=== PATIENT | male | born 1990 | race Caucasian/White ===

== ENCOUNTER 2017-09-08 12:04 | Emergency (ER) | payer MEDICAID ==
[~2017-09-08] VITALS: Ht 180.3 cm; Wt 145.5 kg
[2017-09-08 12:24] VITALS: Ht 180.3 cm; Wt 145.5 kg
[2017-09-08 13:09] LABS: BASOPHILS 0.3 % (0-2); EOSINOPHILS 1.3 % (0-7); HEMOGLOBIN 15.1 g/dL (13.5-17.5); IMMATURE GRANULOCYTES 0.4 % (0-5); LYMPHOCYTES 20.3 % (15-50); MCH 29.3 pg (26.0-34.0); MCHC 33.6 g/dL (31.0-37.0); MCV 87.2 fL (80.0-100.0); MEAN PLATELET VOLUME 10.7 fL (7.4-10.4); MONOCYTES 7.5 % (2-11); NEUTROPHILS 70.2 % (40-80); PLATELET COUNT 356 10x3/uL (130-400); RBC 5.16 10x6/uL (4.20-6.10); RDW 14.3 % (11.5-14.5); WBC 11.9 10x3/uL (4.8-10.8)
[2017-09-08 13:28] LABS: ALBUMIN 3.3 g/dL (3.4-5.0); ALKALINE PHOSPHATASE 84 U/L (46-116); ALT (SGPT) 45 U/L (10-68); BILIRUBIN - TOTAL 0.25 mg/dL (0.2-1.3); CALC OSMOLALITY 282 mosm/kg (275-300); CALCIUM 8.6 mg/dL (8.5-10.1); CARBON DIOXIDE 29.9 mmol/L (21.0-32.0); CHLORIDE - SERUM 108 mmol/L (98-107); CREATININE - SERUM 1.1 mg/dL (0.6-1.3); GLUCOSE 119 mg/dL (74-106); POTASSIUM - SERUM 3.9 mmol/L (3.5-5.1); PROTEIN - SERUM 6.5 g/dL (6.4-8.2); SODIUM 141 mmol/L (136-145); UREA NITROGEN 16 mg/dL (7-18); eGFR NON AFRICAN AMERICAN 87 mL/min (90-120)
[2017-09-08 13:56] LABS: APPEARANCE CLEAR (CLEAR); BILIRUBIN NEGATIVE (NEGATIVE); COLOR DK YELLOW (YELLOW); GLUCOSE NEGATIVE (NEGATIVE); KETONE NEGATIVE (NEGATIVE); NITRITE NEGATIVE (NEGATIVE); PROTEIN NEGATIVE (NEGATIVE); SPECIFIC GRAVITY 1.025 (1.005-1.020); UROBILINOGEN NORMAL (NORMAL)
[2017-09-08 14:03] LABS: AMYLASE - SERUM 24 U/L (25-115); LIPASE 110 U/L (73-393)
[2017-09-08] MEDS ORDERED: BENTYL 20 MG TA20 MG PO (16:27)
[2017-09-08] MEDS ORDERED: OMEPRAZOLE40 MG PO (16:27)
[2017-09-08] MEDS ORDERED: ZOFRAN ODT4 MG/UDTAB PO (16:27)
[2017-09-08 16:52] VITALS: BP 116/70
== END 2017-09-08 16:45 | disposition home or self-care (01) ==
LOC: D.ER 12:04
PROVIDERS: Emergency Medicine
DX: K52.9 Noninfective gastroenteritis and colitis, unspecified (principal); R11.2 Nausea with vomiting, unspecified

== ENCOUNTER 2017-09-10 13:57 | Emergency (ER) | payer MEDICAID ==
[~2017-09-10] VITALS: Ht 180.3 cm; Wt 140.9 kg
[~2017-09-10 13:57] MED LIST: BENTYL 20 MG TA20 MG PO; OMEPRAZOLE40 MG PO; ZOFRAN ODT4 MG/UDTAB PO
[2017-09-10 14:56] VITALS: Ht 180.3 cm; Wt 140.9 kg
[2017-09-10 16:03] LABS: HEMATOCRIT 48.4 % (42.0-54.0); HEMOGLOBIN 16.2 g/dL (13.5-17.5); LYMPHOCYTES 18.6 % (15-50); MCH 29.2 pg (26.0-34.0); MCHC 33.5 g/dL (31.0-37.0); MCV 87.2 fL (80.0-100.0); MEAN PLATELET VOLUME 10.3 fL (7.4-10.4); NEUTROPHILS 71.8 % (40-80); PLATELET COUNT 339 10x3/uL (130-400); RBC 5.55 10x6/uL (4.20-6.10); RDW 14.8 % (11.5-14.5); WBC 12.7 10x3/uL (4.8-10.8)
[2017-09-10 16:26] LABS: AMYLASE - SERUM 29 U/L (25-115); CALC OSMOLALITY 282 mosm/kg (275-300); CALCIUM 8.7 mg/dL (8.5-10.1); CARBON DIOXIDE 29.4 mmol/L (21.0-32.0); CHLORIDE - SERUM 106 mmol/L (98-107); CREATININE - SERUM 1.1 mg/dL (0.6-1.3); GLUCOSE 98 mg/dL (74-106); LIPASE 107 U/L (73-393); POTASSIUM - SERUM 4.1 mmol/L (3.5-5.1); SODIUM 142 mmol/L (136-145); UREA NITROGEN 13 mg/dL (7-18); eGFR NON AFRICAN AMERICAN 87 mL/min (90-120)
[2017-09-10 18:42] LABS: APPEARANCE CLEAR (CLEAR); BILIRUBIN NEGATIVE (NEGATIVE); COLOR YELLOW (YELLOW); GLUCOSE NEGATIVE (NEGATIVE); KETONE NEGATIVE (NEGATIVE); NITRITE NEGATIVE (NEGATIVE); PROTEIN NEGATIVE (NEGATIVE); SPECIFIC GRAVITY 1.025 (1.005-1.020); UROBILINOGEN NORMAL (NORMAL)
[2017-09-10] MEDS ORDERED: CIPRO500 MG PO (21:27)
[2017-09-10] MEDS ORDERED: ZOFRAN ODT4 MG/UDTAB PO (21:27)
[2017-09-10] MEDS ORDERED: FLAGYL500 MG PO (21:27)
[2017-09-10 21:57] VITALS: BP 100/65
== END 2017-09-10 21:54 | disposition home or self-care (01) ==
LOC: D.ER 13:57
PROVIDERS: Emergency Medicine
DX: K52.9 Noninfective gastroenteritis and colitis, unspecified (principal)

== ENCOUNTER 2017-09-12 16:19 | Emergency (ER) | payer MEDICAID ==
[~2017-09-12] VITALS: Ht 180.3 cm; Wt 145.5 kg
[~2017-09-12 16:19] MED LIST changes: +CIPRO500 MG PO; +FLAGYL500 MG PO
[2017-09-12 16:47] VITALS: Ht 180.3 cm; Wt 145.5 kg
[2017-09-12 17:28] LABS: APPEARANCE CLEAR (CLEAR); BILIRUBIN NEGATIVE (NEGATIVE); COLOR YELLOW (YELLOW); GLUCOSE NEGATIVE (NEGATIVE); KETONE NEGATIVE (NEGATIVE); NITRITE NEGATIVE (NEGATIVE); PROTEIN NEGATIVE (NEGATIVE); UROBILINOGEN NORMAL (NORMAL)
[2017-09-12 17:29] LABS: HEMATOCRIT 43.8 % (42.0-54.0); HEMOGLOBIN 14.6 g/dL (13.5-17.5); MCH 29.3 pg (26.0-34.0); MCHC 33.3 g/dL (31.0-37.0); MEAN PLATELET VOLUME 10.7 fL (7.4-10.4); PLATELET COUNT 347 10x3/uL (130-400); RBC 4.98 10x6/uL (4.20-6.10); RDW 14.3 % (11.5-14.5); WBC 21.9 10x3/uL (4.8-10.8)
[2017-09-12 17:47] LABS: ALBUMIN 3.1 g/dL (3.4-5.0); ALKALINE PHOSPHATASE 100 U/L (46-116); ALT (SGPT) 34 U/L (10-68); BILIRUBIN - TOTAL 0.13 mg/dL (0.2-1.3); CALC OSMOLALITY 280 mosm/kg (275-300); CALCIUM 8.9 mg/dL (8.5-10.1); CARBON DIOXIDE 25.6 mmol/L (21.0-32.0); CHLORIDE - SERUM 106 mmol/L (98-107); CREATININE - SERUM 0.9 mg/dL (0.6-1.3); GLUCOSE 127 mg/dL (74-106); POTASSIUM - SERUM 4.1 mmol/L (3.5-5.1); PROTEIN - SERUM 6.6 g/dL (6.4-8.2); SODIUM 140 mmol/L (136-145); UREA NITROGEN 13 mg/dL (7-18); eGFR NON AFRICAN AMERICAN > 90 mL/min (90-120)
[2017-09-12 18:13] LABS: LYMPHOCYTES 8 % (15-50); MONOCYTES 4 % (2-11); NEUTROPHILS 87 % (40-80); PLATELET ESTIMATE NORMAL; PLATELET MORPHOLOGY GIANT PLTS PRESENT
[2017-09-12 20:40] LABS: AMYLASE - SERUM 32 U/L (25-115); LIPASE 90 U/L (73-393)
[2017-09-12] MEDS ORDERED: TYLENOL W/CODEI1 TAB PO (21:21)
[2017-09-12] MEDS ORDERED: CARAFATE1 G PO (21:21)
[2017-09-12 21:51] VITALS: BP 149/86
== END 2017-09-12 21:51 | disposition home or self-care (01) ==
LOC: D.ER 16:19
PROVIDERS: Family Medicine
DX: R10.13 Epigastric pain (principal); K29.70 Gastritis, unspecified, without bleeding

== ENCOUNTER 2018-01-06 15:59 | Inpatient (IN) | payer MEDICAID ==
[~2018-01-06] VITALS: Ht 180.3 cm; Wt 142.7 kg
--- NOTE | ~2018-01-06 | MORECARE ---
CASE MANAGEMENT DISCHARGE SUMMARY PATIENT: MINDI MALONE UNIT: [id number] ADM DATE: 01/07/18 AGE: 27 : 89 SEX: M ROOM/BED: D.2128 AUTHOR: IRAIS JORDAN PHYSICIAN: REFERRING PHYSICIAN: SAFIA PATEL MD DATE OF SERVICE: 01/15/18 Discharge Plan Patient Name: MINDI MALONE Facility: [facility]:[place] : 1990 Planned Disposition: Home Anticipated Discharge Date: 01/13/18 Discharge Date: 01/13/2018 Expected LOS: 6 Initial Reviewer: [email or web address] Initial Review Date: 01/15/2018 Generated: 01/15/18 6:05 pm Patient Name: MINDI MALONE Page [id number] at 1705 All edits/amendments must be made on the electronic document DICTATION DATE: 01/15/181704 BATH STEWARD/STEWARDESS: LUIS 01/15/181704 RPT#: [id number] DC DATE:01/13/18 STATUS: DIS IN [facility] [address] [place] [address] END OF REPORT
[~2018-01-06 15:59] MED LIST changes: +CARAFATE1 G PO; +TYLENOL W/CODEI1 TAB PO
[2018-01-06 16:39] LABS: BASOPHILS 0.3 % (0-2); EOSINOPHILS 0.9 % (0-7); HEMATOCRIT 43.2 % (42.0-54.0); HEMOGLOBIN 14.1 g/dL (13.5-17.5); IMMATURE GRANULOCYTES 0.4 % (0-5); MCH 29.1 pg (26.0-34.0); MCHC 32.6 g/dL (31.0-37.0); MCV 89.1 fL (80.0-100.0); MEAN PLATELET VOLUME 10.1 fL (7.4-10.4); MONOCYTES 8.7 % (2-11); NEUTROPHILS 65.7 % (40-80); PLATELET COUNT 383 10x3/uL (130-400); RBC 4.85 10x6/uL (4.20-6.10)
[2018-01-06 16:57] LABS: ALBUMIN 2.9 g/dL (3.4-5.0); ALKALINE PHOSPHATASE 93 U/L (46-116); ALT (SGPT) 32 U/L (10-68); AMYLASE - SERUM 31 U/L (25-115); BILIRUBIN - TOTAL 0.09 mg/dL (0.2-1.3); CALC OSMOLALITY 283 mosm/kg (275-300); CALCIUM 8.5 mg/dL (8.5-10.1); CARBON DIOXIDE 29.8 mmol/L (21.0-32.0); CHLORIDE - SERUM 107 mmol/L (98-107); CREATININE - SERUM 0.8 mg/dL (0.6-1.3); GLUCOSE 89 mg/dL (74-106); LIPASE 80 U/L (73-393); POTASSIUM - SERUM 3.6 mmol/L (3.5-5.1); PROTEIN - SERUM 6.9 g/dL (6.4-8.2); SODIUM 143 mmol/L (136-145); UREA NITROGEN 13 mg/dL (7-18); eGFR NON AFRICAN AMERICAN > 90 mL/min (90-120)
[2018-01-06 19:50] LABS: APPEARANCE CLEAR (CLEAR); BILIRUBIN NEGATIVE (NEGATIVE); COLOR YELLOW (YELLOW); GLUCOSE NEGATIVE (NEGATIVE); KETONE NEGATIVE (NEGATIVE); NITRITE NEGATIVE (NEGATIVE); PROTEIN NEGATIVE (NEGATIVE); SPECIFIC GRAVITY 1.015 (1.005-1.020); UROBILINOGEN NORMAL (NORMAL)
[2018-01-06 20:07] VITALS: BP 152/80
[2018-01-07 04:00] VITALS: BP 101/41
[2018-01-07 05:34] LABS: BASOPHILS 0.3 % (0-2); EOSINOPHILS 1.8 % (0-7); HEMATOCRIT 39.7 % (42.0-54.0); HEMOGLOBIN 12.7 g/dL (13.5-17.5); IMMATURE GRANULOCYTES 0.4 % (0-5); MCH 28.5 pg (26.0-34.0); MEAN PLATELET VOLUME 10.1 fL (7.4-10.4); MONOCYTES 7.1 % (2-11); NEUTROPHILS 64.4 % (40-80); PLATELET COUNT 325 10x3/uL (130-400); RBC 4.46 10x6/uL (4.20-6.10); RDW 14.2 % (11.5-14.5); WBC 13.5 10x3/uL (4.8-10.8)
[2018-01-07 06:07] LABS: ALBUMIN 2.5 g/dL (3.4-5.0); ALKALINE PHOSPHATASE 81 U/L (46-116); ALT (SGPT) 26 U/L (10-68); BILIRUBIN - TOTAL 0.18 mg/dL (0.2-1.3); CALC OSMOLALITY 279 mosm/kg (275-300); CALCIUM 7.9 mg/dL (8.5-10.1); CARBON DIOXIDE 28.7 mmol/L (21.0-32.0); CHLORIDE - SERUM 106 mmol/L (98-107); CREATININE - SERUM 0.8 mg/dL (0.6-1.3); GLUCOSE 83 mg/dL (74-106); PROTEIN - SERUM 5.9 g/dL (6.4-8.2); SODIUM 141 mmol/L (136-145); UREA NITROGEN 12 mg/dL (7-18); eGFR NON AFRICAN AMERICAN > 90 mL/min (90-120)
[2018-01-07 08:16] VITALS: BP 141/109
[2018-01-07 11:37] VITALS: BP 114/62
[2018-01-07 13:15] VITALS: BMI 43.5
[2018-01-07 15:30] VITALS: BP 135/96
[2018-01-07 20:00] VITALS: BP 153/77
[2018-01-08] VITALS: BP 137/66
[2018-01-08 04:00] VITALS: BP 114/64
[2018-01-08 05:16] LABS: BASOPHILS 0.1 % (0-2); EOSINOPHILS 2.7 % (0-7); HEMATOCRIT 40.4 % (42.0-54.0); HEMOGLOBIN 12.8 g/dL (13.5-17.5); IMMATURE GRANULOCYTES 0.2 % (0-5); LYMPHOCYTES 18.6 % (15-50); MCH 28.6 pg (26.0-34.0); MCHC 31.7 g/dL (31.0-37.0); MCV 90.2 fL (80.0-100.0); MEAN PLATELET VOLUME 9.8 fL (7.4-10.4); MONOCYTES 5.2 % (2-11); NEUTROPHILS 73.2 % (40-80); PLATELET COUNT 316 10x3/uL (130-400); RBC 4.48 10x6/uL (4.20-6.10); WBC 13.4 10x3/uL (4.8-10.8)
[2018-01-08 05:41] LABS: ALBUMIN 2.6 g/dL (3.4-5.0); ALKALINE PHOSPHATASE 97 U/L (46-116); ALT (SGPT) 24 U/L (10-68); AMYLASE - SERUM 26 U/L (25-115); BILIRUBIN - TOTAL 0.22 mg/dL (0.2-1.3); CALC OSMOLALITY 274 mosm/kg (275-300); CALCIUM 8.3 mg/dL (8.5-10.1); CARBON DIOXIDE 30.2 mmol/L (21.0-32.0); CHLORIDE - SERUM 103 mmol/L (98-107); CREATININE - SERUM 0.8 mg/dL (0.6-1.3); GLUCOSE 95 mg/dL (74-106); LIPASE 93 U/L (73-393); MAGNESIUM - SERUM 2.1 mg/dL (1.8-2.4); PROTEIN - SERUM 6.3 g/dL (6.4-8.2); SODIUM 138 mmol/L (136-145); UREA NITROGEN 11 mg/dL (7-18); eGFR NON AFRICAN AMERICAN > 90 mL/min (90-120)
[2018-01-08 08:05] VITALS: BP 117/87
[2018-01-08 21:08] VITALS: BP 102/63
[2018-01-09] VITALS: BP 110/58
[2018-01-09 04:00] VITALS: BP 110/53
[2018-01-09 05:23] LABS: BASOPHILS 0.2 % (0-2); HEMATOCRIT 39.9 % (42.0-54.0); HEMOGLOBIN 12.9 g/dL (13.5-17.5); IMMATURE GRANULOCYTES 0.3 % (0-5); LYMPHOCYTES 17.5 % (15-50); MCH 28.9 pg (26.0-34.0); MCHC 32.3 g/dL (31.0-37.0); MCV 89.5 fL (80.0-100.0); MEAN PLATELET VOLUME 9.6 fL (7.4-10.4); PLATELET COUNT 290 10x3/uL (130-400); RBC 4.46 10x6/uL (4.20-6.10); RDW 13.7 % (11.5-14.5); WBC 11.7 10x3/uL (4.8-10.8)
[2018-01-09 06:00] LABS: ALBUMIN 2.7 g/dL (3.4-5.0); ALKALINE PHOSPHATASE 97 U/L (46-116); ALT (SGPT) 22 U/L (10-68); BILIRUBIN - TOTAL 0.27 mg/dL (0.2-1.3); CALC OSMOLALITY 273 mosm/kg (275-300); CALCIUM 8.5 mg/dL (8.5-10.1); CARBON DIOXIDE 29.4 mmol/L (21.0-32.0); CHLORIDE - SERUM 104 mmol/L (98-107); GLUCOSE 102 mg/dL (74-106); POTASSIUM - SERUM 3.8 mmol/L (3.5-5.1); PROTEIN - SERUM 6.5 g/dL (6.4-8.2); SODIUM 137 mmol/L (136-145); UREA NITROGEN 12 mg/dL (7-18); eGFR NON AFRICAN AMERICAN > 90 mL/min (90-120)
[2018-01-09 08:34] VITALS: BP 206/159
[2018-01-09 12:05] VITALS: BP 148/74
[2018-01-09 16:55] VITALS: BP 128/77
[2018-01-09 21:06] VITALS: BP 106/69
[2018-01-10] VITALS: BP 111/62
[2018-01-10 04:59] VITALS: BP 130/60
[2018-01-10 05:31] LABS: BASOPHILS 0.2 % (0-2); EOSINOPHILS 3.7 % (0-7); HEMATOCRIT 41.4 % (42.0-54.0); HEMOGLOBIN 13.4 g/dL (13.5-17.5); IMMATURE GRANULOCYTES 0.4 % (0-5); LYMPHOCYTES 19.6 % (15-50); MCH 28.8 pg (26.0-34.0); MCHC 32.4 g/dL (31.0-37.0); MCV 88.8 fL (80.0-100.0); MONOCYTES 6.7 % (2-11); NEUTROPHILS 69.4 % (40-80); PLATELET COUNT 332 10x3/uL (130-400); RBC 4.66 10x6/uL (4.20-6.10); RDW 13.8 % (11.5-14.5); WBC 12.9 10x3/uL (4.8-10.8)
[2018-01-10 05:52] LABS: ALBUMIN 2.9 g/dL (3.4-5.0); ALKALINE PHOSPHATASE 104 U/L (46-116); ALT (SGPT) 24 U/L (10-68); BILIRUBIN - TOTAL 0.31 mg/dL (0.2-1.3); CALC OSMOLALITY 273 mosm/kg (275-300); CALCIUM 8.2 mg/dL (8.5-10.1); CARBON DIOXIDE 26.4 mmol/L (21.0-32.0); CHLORIDE - SERUM 104 mmol/L (98-107); CREATININE - SERUM 0.9 mg/dL (0.6-1.3); GLUCOSE 110 mg/dL (74-106); MAGNESIUM - SERUM 1.8 mg/dL (1.8-2.4); POTASSIUM - SERUM 4.1 mmol/L (3.5-5.1); PROTEIN - SERUM 6.3 g/dL (6.4-8.2); SODIUM 137 mmol/L (136-145); UREA NITROGEN 10 mg/dL (7-18); eGFR NON AFRICAN AMERICAN > 90 mL/min (90-120)
[2018-01-10 09:24] VITALS: BP 133/85
[2018-01-10 13:28] VITALS: BP 124/65
[2018-01-10 16:47] VITALS: BP 117/40
[2018-01-10 20:00] VITALS: BP 116/53
[2018-01-11 04:00] VITALS: BP 120/50
[2018-01-11 06:54] LABS: BASOPHILS 0.3 % (0-2); EOSINOPHILS 3.6 % (0-7); HEMATOCRIT 41.9 % (42.0-54.0); HEMOGLOBIN 13.6 g/dL (13.5-17.5); IMMATURE GRANULOCYTES 0.4 % (0-5); LYMPHOCYTES 23.7 % (15-50); MCH 28.7 pg (26.0-34.0); MCHC 32.5 g/dL (31.0-37.0); MCV 88.4 fL (80.0-100.0); MEAN PLATELET VOLUME 10.2 fL (7.4-10.4); MONOCYTES 6.8 % (2-11); NEUTROPHILS 65.2 % (40-80); PLATELET COUNT 340 10x3/uL (130-400); RBC 4.74 10x6/uL (4.20-6.10); RDW 13.9 % (11.5-14.5); WBC 11.4 10x3/uL (4.8-10.8)
[2018-01-11 07:17] LABS: ALBUMIN 2.9 g/dL (3.4-5.0); ALKALINE PHOSPHATASE 93 U/L (46-116); ALT (SGPT) 28 U/L (10-68); BILIRUBIN - TOTAL 0.42 mg/dL (0.2-1.3); CALC OSMOLALITY 274 mosm/kg (275-300); CALCIUM 8.8 mg/dL (8.5-10.1); CARBON DIOXIDE 28.5 mmol/L (21.0-32.0); CHLORIDE - SERUM 104 mmol/L (98-107); CREATININE - SERUM 0.9 mg/dL (0.6-1.3); GLUCOSE 89 mg/dL (74-106); MAGNESIUM - SERUM 1.9 mg/dL (1.8-2.4); POTASSIUM - SERUM 3.9 mmol/L (3.5-5.1); PROTEIN - SERUM 6.8 g/dL (6.4-8.2); SODIUM 139 mmol/L (136-145); eGFR NON AFRICAN AMERICAN > 90 mL/min (90-120)
[2018-01-11 07:18] LABS: UREA NITROGEN 7 mg/dL (7-18)
[2018-01-11 10:48] VITALS: BP 146/63
[2018-01-11 14:38] VITALS: BP 137/48
[2018-01-11 16:55] VITALS: BP 104/79
[2018-01-11 20:00] VITALS: BP 122/55
[2018-01-12] VITALS (7 sets, daily range): BP systolic 90–143; BP diastolic 52–89
[2018-01-12 06:04] LABS: BASOPHILS 0.2 % (0-2); EOSINOPHILS 2.5 % (0-7); HEMATOCRIT 41.3 % (42.0-54.0); HEMOGLOBIN 13.5 g/dL (13.5-17.5); IMMATURE GRANULOCYTES 0.4 % (0-5); LYMPHOCYTES 19.4 % (15-50); MCHC 32.7 g/dL (31.0-37.0); MCV 88.6 fL (80.0-100.0); MEAN PLATELET VOLUME 10.1 fL (7.4-10.4); MONOCYTES 7.1 % (2-11); NEUTROPHILS 70.4 % (40-80); PLATELET COUNT 347 10x3/uL (130-400); RBC 4.66 10x6/uL (4.20-6.10); RDW 13.9 % (11.5-14.5); WBC 14.2 10x3/uL (4.8-10.8)
[2018-01-12 06:36] LABS: ALBUMIN 2.9 g/dL (3.4-5.0); ALKALINE PHOSPHATASE 91 U/L (46-116); ALT (SGPT) 29 U/L (10-68); BILIRUBIN - TOTAL 0.32 mg/dL (0.2-1.3); CALC OSMOLALITY 271 mosm/kg (275-300); CALCIUM 8.4 mg/dL (8.5-10.1); CARBON DIOXIDE 28.4 mmol/L (21.0-32.0); CHLORIDE - SERUM 103 mmol/L (98-107); GLUCOSE 89 mg/dL (74-106); MAGNESIUM - SERUM 1.5 mg/dL (1.8-2.4); POTASSIUM - SERUM 3.7 mmol/L (3.5-5.1); SODIUM 137 mmol/L (136-145); eGFR NON AFRICAN AMERICAN > 90 mL/min (90-120)
[2018-01-12 06:37] LABS: UREA NITROGEN 9 mg/dL (7-18)
[2018-01-13 01:16] VITALS: BP 126/63
[2018-01-13 05:50] VITALS: BP 132/65
[2018-01-13 06:24] LABS: CALC OSMOLALITY 274 mosm/kg (275-300); CALCIUM 8.8 mg/dL (8.5-10.1); CARBON DIOXIDE 27.3 mmol/L (21.0-32.0); CHLORIDE - SERUM 103 mmol/L (98-107); CREATININE - SERUM 0.9 mg/dL (0.6-1.3); GLUCOSE 92 mg/dL (74-106); POTASSIUM - SERUM 3.8 mmol/L (3.5-5.1); SODIUM 138 mmol/L (136-145); UREA NITROGEN 10 mg/dL (7-18); eGFR NON AFRICAN AMERICAN > 90 mL/min (90-120)
[2018-01-13 06:28] LABS: BASOPHILS 0.2 % (0-2); EOSINOPHILS 2.3 % (0-7); HEMATOCRIT 41.1 % (42.0-54.0); HEMOGLOBIN 13.6 g/dL (13.5-17.5); IMMATURE GRANULOCYTES 0.4 % (0-5); LYMPHOCYTES 23.3 % (15-50); MCH 29.2 pg (26.0-34.0); MCHC 33.1 g/dL (31.0-37.0); MCV 88.2 fL (80.0-100.0); MEAN PLATELET VOLUME 10.1 fL (7.4-10.4); MONOCYTES 7.1 % (2-11); NEUTROPHILS 66.7 % (40-80); PLATELET COUNT 333 10x3/uL (130-400); RBC 4.66 10x6/uL (4.20-6.10); RDW 13.8 % (11.5-14.5); WBC 10.7 10x3/uL (4.8-10.8)
[2018-01-13 09:17] VITALS: BP 125/69
[2018-01-13 11:08] VITALS: BP 125/57
[2018-01-13 15:13] VITALS: BP 136/56
[2018-01-13] MEDS ORDERED: ZOFRAN8 MG PO (17:40)
[2018-01-13 21:03] VITALS: Ht 180.3 cm; Wt 142.7 kg
[2018-01-14 07:22] LABS: HEPATITIS C ANTIBODY <0.1 S/CO RAT (0.0-0.9)
[2018-01-15 12:11] LABS: EBV - EARLY ANTIGEN AB IGG <9.0 U/mL (0.0-8.9); EBV VIRAL CAPSID AB IGM <36.0 U/mL (0.0-35.9)
[2018-01-18 15:16] LABS: EHRLICHIA CHAFF IGG Negative (Neg:<1:64); EHRLICHIA CHAFF IGM Negative (Neg:<1:20); HGE IGG TITER Negative (Neg:<1:64); HGE IGM TITER Negative (Neg:<1:20)
== END 2018-01-13 19:42 | disposition home or self-care (01) | DRG 866 ==
LOC: D.ER 15:59 → D.EDHOLD 21:23 → D.M2 21:23 → OBSVTIME 21:23 → D.M2 22:13
PROVIDERS: Emergency Medicine; Family Medicine; Internal Medicine Gastroenterology; Internal Medicine Nephrology
DX: B34.9 Viral infection, unspecified (principal); K52.9 Noninfective gastroenteritis and colitis, unspecified; K29.70 Gastritis, unspecified, without bleeding; K21.9 Gastro-esophageal reflux disease without esophagitis

== ENCOUNTER 2018-01-20 08:34 | Emergency (ER) | payer MEDICAID ==
[~2018-01-20] VITALS: Ht 180.3 cm; Wt 141.8 kg
[~2018-01-20 08:34] MED LIST changes: +ZOFRAN8 MG PO
[2018-01-20 08:55] VITALS: Ht 180.3 cm; Wt 141.8 kg
[2018-01-20 09:34] LABS: BASOPHILS 0 % (0-2); EOSINOPHILS 0 % (0-7); HEMATOCRIT 42.9 % (42.0-54.0); HEMOGLOBIN 14.4 g/dL (13.5-17.5); IMMATURE GRANULOCYTES 0.5 % (0-5); LYMPHOCYTES 6.7 % (15-50); MCH 29.3 pg (26.0-34.0); MCHC 33.6 g/dL (31.0-37.0); MCV 87.2 fL (80.0-100.0); MEAN PLATELET VOLUME 9.9 fL (7.4-10.4); MONOCYTES 6.9 % (2-11); NEUTROPHILS 85.9 % (40-80); PLATELET COUNT 425 10x3/uL (130-400); RBC 4.92 10x6/uL (4.20-6.10); RDW 13.8 % (11.5-14.5); WBC 26.2 10x3/uL (4.8-10.8)
[2018-01-20 09:44] LABS: ALBUMIN 3.2 g/dL (3.4-5.0); ALKALINE PHOSPHATASE 97 U/L (46-116); ALT (SGPT) 24 U/L (10-68); BILIRUBIN - TOTAL 0.14 mg/dL (0.2-1.3); CALC OSMOLALITY 282 mosm/kg (275-300); CALCIUM 9.1 mg/dL (8.5-10.1); CARBON DIOXIDE 25.7 mmol/L (21.0-32.0); CHLORIDE - SERUM 106 mmol/L (98-107); CREATININE - SERUM 0.9 mg/dL (0.6-1.3); GLUCOSE 127 mg/dL (74-106); POTASSIUM - SERUM 4.1 mmol/L (3.5-5.1); PROTEIN - SERUM 7.7 g/dL (6.4-8.2); SODIUM 141 mmol/L (136-145); UREA NITROGEN 13 mg/dL (7-18); eGFR NON AFRICAN AMERICAN > 90 mL/min (90-120)
[2018-01-20 09:47] LABS: AMYLASE - SERUM 29 U/L (25-115); LIPASE 64 U/L (73-393); TROPONIN-I < 0.017 ng/mL (0.000-0.060)
[2018-01-20 11:17] LABS: APPEARANCE CLEAR (CLEAR); BILIRUBIN NEGATIVE (NEGATIVE); COLOR YELLOW (YELLOW); GLUCOSE NEGATIVE (NEGATIVE); KETONE NEGATIVE (NEGATIVE); NITRITE NEGATIVE (NEGATIVE); PROTEIN NEGATIVE (NEGATIVE); SPECIFIC GRAVITY 1.015 (1.005-1.020); UROBILINOGEN NORMAL (NORMAL)
[2018-01-20] MEDS ORDERED: ZOFRAN ODT4 MG/UDTAB PO (12:03)
[2018-01-20] MEDS ORDERED: PHENERGAN25 MG RC (12:49)
[2018-01-20 13:43] VITALS: BP 138/90
== END 2018-01-20 13:44 | disposition home or self-care (01) ==
LOC: D.ER 08:34
PROVIDERS: Emergency Medicine
DX: R11.10 Vomiting, unspecified (principal); R10.9 Unspecified abdominal pain; R11.2 Nausea with vomiting, unspecified

== ENCOUNTER 2018-03-04 16:15 | Emergency (ER) | payer MEDICAID ==
[~2018-03-04] VITALS: Ht 180.3 cm; Wt 141.8 kg
[~2018-03-04 16:15] MED LIST changes: +PHENERGAN25 MG RC
[2018-03-04 16:31] VITALS: Ht 180.3 cm; Wt 141.8 kg
[2018-03-04 17:49] LABS: BASOPHILS 0.3 % (0-2); EOSINOPHILS 1.6 % (0-7); HEMOGLOBIN 14.5 g/dL (13.5-17.5); IMMATURE GRANULOCYTES 0.2 % (0-5); LYMPHOCYTES 30.8 % (15-50); MCH 28.7 pg (26.0-34.0); MEAN PLATELET VOLUME 10.1 fL (7.4-10.4); MONOCYTES 8.7 % (2-11); NEUTROPHILS 58.4 % (40-80); PLATELET COUNT 361 10x3/uL (130-400); RBC 5.06 10x6/uL (4.20-6.10); RDW 14.2 % (11.5-14.5); WBC 12.9 10x3/uL (4.8-10.8)
[2018-03-04 17:57] LABS: APPEARANCE CLEAR (CLEAR); BILIRUBIN NEGATIVE (NEGATIVE); COLOR YELLOW (YELLOW); GLUCOSE NEGATIVE (NEGATIVE); KETONE NEGATIVE (NEGATIVE); NITRITE NEGATIVE (NEGATIVE); PROTEIN NEGATIVE (NEGATIVE); SPECIFIC GRAVITY 1.025 (1.005-1.020); UROBILINOGEN NORMAL (NORMAL)
[2018-03-04 18:01] LABS: ALBUMIN 3.3 g/dL (3.4-5.0); ALKALINE PHOSPHATASE 109 U/L (46-116); ALT (SGPT) 41 U/L (10-68); AMYLASE - SERUM 35 U/L (25-115); BILIRUBIN - TOTAL 0.13 mg/dL (0.2-1.3); CALC OSMOLALITY 283 mosm/kg (275-300); CALCIUM 8.5 mg/dL (8.5-10.1); CARBON DIOXIDE 27.3 mmol/L (21.0-32.0); CHLORIDE - SERUM 107 mmol/L (98-107); CREATININE - SERUM 1.1 mg/dL (0.6-1.3); LIPASE 89 U/L (73-393); POTASSIUM - SERUM 3.7 mmol/L (3.5-5.1); PROTEIN - SERUM 7.4 g/dL (6.4-8.2); SODIUM 142 mmol/L (136-145); TRIGLYCERIDE 93 mg/dL (30-200); UREA NITROGEN 21 mg/dL (7-18); eGFR NON AFRICAN AMERICAN 87 mL/min (90-120)
[2018-03-04 18:02] LABS: GLUCOSE 71 mg/dL (74-106)
[2018-03-04] MEDS ORDERED: ZOFRAN8 MG PO (20:28)
[2018-03-04] MEDS ORDERED: LEVAQUIN750 MG PO (20:28)
[2018-03-04 21:05] VITALS: BP 118/66
== END 2018-03-04 21:05 | disposition home or self-care (01) ==
LOC: D.ER 16:15
PROVIDERS: Family Medicine
DX: R10.11 Right upper quadrant pain (principal); R11.2 Nausea with vomiting, unspecified

== ENCOUNTER 2018-05-13 16:39 | Emergency (ER) | payer MEDICAID ==
[~2018-05-13] VITALS: Ht 180.3 cm; Wt 137.3 kg
[~2018-05-13 16:39] MED LIST changes: +LEVAQUIN750 MG PO
[2018-05-13 16:56] VITALS: Ht 180.3 cm; Wt 137.3 kg
[2018-05-13] MEDS ORDERED: PROTONIX40 MG PO (17:03)
[2018-05-13 17:57] LABS: APPEARANCE CLEAR (CLEAR); BILIRUBIN NEGATIVE (NEGATIVE); COLOR YELLOW (YELLOW); GLUCOSE NEGATIVE (NEGATIVE); KETONE NEGATIVE (NEGATIVE); NITRITE NEGATIVE (NEGATIVE); PROTEIN NEGATIVE (NEGATIVE); SPECIFIC GRAVITY 1.025 (1.005-1.020)
[2018-05-13 17:58] LABS: BACTERIA FEW /hpf (NONE SEEN); CALCIUM OXALATE CRYSTALS 0-5 /hpf (NONE SEEN); RED CELLS - URINE 0-5 /hpf (0-5); WHITE CELLS - URINE 0-5 /hpf (0-5)
[2018-05-13] MEDS ORDERED: HYDROCODON-ACE1 EAC2 PO (18:51)
[2018-05-13] MEDS ORDERED: ZOFRAN8 MG PO (18:51)
[2018-05-13 19:47] VITALS: BP 132/79
== END 2018-05-13 19:47 | disposition home or self-care (01) ==
LOC: D.ER 16:39
PROVIDERS: Emergency Medicine
DX: R10.9 Unspecified abdominal pain (principal); N20.0 Calculus of kidney; R11.2 Nausea with vomiting, unspecified

== ENCOUNTER 2018-05-19 22:20 | Emergency (ER) | payer MEDICAID ==
[~2018-05-19] VITALS: Ht 180.3 cm; Wt 136.8 kg
[~2018-05-19 22:20] MED LIST changes: +HYDROCODON-ACE1 EAC2 PO; +PROTONIX40 MG PO
[2018-05-19 22:24] VITALS: Ht 180.3 cm; Wt 136.8 kg
[2018-05-19] MEDS ORDERED: FLOMAX0.4 MG PO (22:26)
[2018-05-19 23:08] LABS: BASOPHILS 0 % (0-2); EOSINOPHILS 0 % (0-7); HEMATOCRIT 47.1 % (42.0-54.0); HEMOGLOBIN 15.5 g/dL (13.5-17.5); IMMATURE GRANULOCYTES 0.1 % (0-5); LYMPHOCYTES 6.1 % (15-50); MCH 28.9 pg (26.0-34.0); MCHC 32.9 g/dL (31.0-37.0); MCV 87.9 fL (80.0-100.0); MEAN PLATELET VOLUME 10.5 fL (7.4-10.4); MONOCYTES 0.8 % (2-11); PLATELET COUNT 354 10x3/uL (130-400); RBC 5.36 10x6/uL (4.20-6.10); RDW 13.6 % (11.5-14.5); WBC 8.6 10x3/uL (4.8-10.8)
[2018-05-19 23:21] LABS: ALBUMIN 3.7 g/dL (3.4-5.0); ALKALINE PHOSPHATASE 106 U/L (46-116); ALT (SGPT) 48 U/L (10-68); CALC OSMOLALITY 281 mosm/kg (275-300); CALCIUM 8.6 mg/dL (8.5-10.1); CHLORIDE - SERUM 104 mmol/L (98-107); GLUCOSE 167 mg/dL (74-106); POTASSIUM - SERUM 4.1 mmol/L (3.5-5.1); PROTEIN - SERUM 7.8 g/dL (6.4-8.2); SODIUM 140 mmol/L (136-145); UREA NITROGEN 11 mg/dL (7-18); eGFR NON AFRICAN AMERICAN > 90 mL/min (90-120)
[2018-05-19 23:24] LABS: AMYLASE - SERUM 44 U/L (25-115); LIPASE 95 U/L (73-393); TROPONIN-I < 0.017 ng/mL (0.000-0.060)
[2018-05-20 00:41] LABS: APPEARANCE CLEAR (CLEAR); BILIRUBIN NEGATIVE (NEGATIVE); COLOR YELLOW (YELLOW); GLUCOSE NEGATIVE (NEGATIVE); KETONE NEGATIVE (NEGATIVE); NITRITE NEGATIVE (NEGATIVE); PROTEIN NEGATIVE (NEGATIVE); SPECIFIC GRAVITY 1.015 (1.005-1.020); UROBILINOGEN NORMAL (NORMAL)
[2018-05-20] MEDS ORDERED: CIPRO500 MG PO (00:49)
[2018-05-20 01:13] VITALS: BP 137/117
== END 2018-05-20 01:17 | disposition home or self-care (01) ==
LOC: D.ER 22:20
PROVIDERS: Emergency Medicine
DX: R10.9 Unspecified abdominal pain (principal)

== ENCOUNTER 2018-07-10 11:47 | Emergency (ER) | payer MEDICAID ==
[~2018-07-10] VITALS: Ht 180.3 cm; Wt 137.3 kg
[~2018-07-10 11:47] MED LIST changes: +FLOMAX0.4 MG PO
[2018-07-10 11:51] VITALS: Ht 180.3 cm; Wt 137.3 kg
[2018-07-10 12:06] LABS: APPEARANCE CLEAR (CLEAR); BILIRUBIN NEGATIVE (NEGATIVE); COLOR YELLOW (YELLOW); GLUCOSE NEGATIVE (NEGATIVE); KETONE MODERATE mg/dL (NEGATIVE); NITRITE NEGATIVE (NEGATIVE); PROTEIN NEGATIVE (NEGATIVE); UROBILINOGEN NORMAL (NORMAL)
[2018-07-10 12:09] LABS: BASOPHILS 0.1 % (0-2); EOSINOPHILS 0.1 % (0-7); HEMATOCRIT 42.4 % (42.0-54.0); HEMOGLOBIN 14.4 g/dL (13.5-17.5); IMMATURE GRANULOCYTES 0.4 % (0-5); LYMPHOCYTES 12.7 % (15-50); MCH 29.1 pg (26.0-34.0); MCV 85.7 fL (80.0-100.0); MEAN PLATELET VOLUME 9.8 fL (7.4-10.4); MONOCYTES 5.8 % (2-11); NEUTROPHILS 80.9 % (40-80); PLATELET COUNT 360 10x3/uL (130-400); RBC 4.95 10x6/uL (4.20-6.10); RDW 13.4 % (11.5-14.5); WBC 18.5 10x3/uL (4.8-10.8)
[2018-07-10 12:22] LABS: ALBUMIN 3.7 g/dL (3.4-5.0); ALKALINE PHOSPHATASE 98 U/L (46-116); ALT (SGPT) 47 U/L (10-68); BILIRUBIN - TOTAL 0.25 mg/dL (0.2-1.3); CALCIUM 8.8 mg/dL (8.5-10.1); CARBON DIOXIDE 21.4 mmol/L (21.0-32.0); CHLORIDE - SERUM 102 mmol/L (98-107); CREATININE - SERUM 0.9 mg/dL (0.6-1.3); POTASSIUM - SERUM 4.1 mmol/L (3.5-5.1); PROTEIN - SERUM 7.8 g/dL (6.4-8.2); SODIUM 137 mmol/L (136-145); UREA NITROGEN 15 mg/dL (7-18); eGFR NON AFRICAN AMERICAN > 90 mL/min (90-120)
[2018-07-10 12:26] LABS: AMYLASE - SERUM 31 U/L (25-115); LIPASE 78 U/L (73-393)
[2018-07-10 12:27] LABS: CALC OSMOLALITY 274 mosm/kg (275-300); GLUCOSE 92 mg/dL (74-106); TROPONIN-I < 0.017 ng/mL (0.000-0.060)
[2018-07-10] MEDS ORDERED: ZOFRAN ODT4 MG/UDTAB PO (13:46)
[2018-07-10] MEDS ORDERED: PEPCID AC20 MG PO (13:46)
[2018-07-10 14:35] VITALS: BP 112/78
== END 2018-07-10 14:36 | disposition home or self-care (01) ==
LOC: D.ER 11:47
PROVIDERS: Emergency Medicine
DX: R10.11 Right upper quadrant pain (principal); K29.70 Gastritis, unspecified, without bleeding

== ENCOUNTER 2018-08-03 11:12 | Emergency (ER) | payer MEDICAID ==
[~2018-08-03 11:12] MED LIST changes: +PEPCID AC20 MG PO
[2018-08-03 11:14] VITALS: BMI 42.3
[2018-08-03 11:50] LABS: HEMATOCRIT 43.8 % (42.0-54.0); HEMOGLOBIN 14.9 g/dL (13.5-17.5); MCH 29.6 pg (26.0-34.0); MCV 86.9 fL (80.0-100.0); MEAN PLATELET VOLUME 10.3 fL (7.4-10.4); PLATELET COUNT 362 10x3/uL (130-400); RBC 5.04 10x6/uL (4.20-6.10); WBC 20.7 10x3/uL (4.8-10.8)
[2018-08-03 11:56] LABS: ALBUMIN 3.3 g/dL (3.4-5.0); ALKALINE PHOSPHATASE 102 U/L (46-116); ALT (SGPT) 40 U/L (10-68); BILIRUBIN - TOTAL 0.15 mg/dL (0.2-1.3); CALC OSMOLALITY 286 mosm/kg (275-300); CALCIUM 8.8 mg/dL (8.5-10.1); CARBON DIOXIDE 24.3 mmol/L (21.0-32.0); CHLORIDE - SERUM 110 mmol/L (98-107); CREATININE - SERUM 0.9 mg/dL (0.6-1.3); GLUCOSE 112 mg/dL (74-106); LIPASE 76 U/L (73-393); SODIUM 144 mmol/L (136-145); UREA NITROGEN 9 mg/dL (7-18); eGFR NON AFRICAN AMERICAN > 90 mL/min (90-120)
[2018-08-03 12:35] LABS: UDS - AMPHET NEGATIVE QUAL (NEGATIVE); UDS - BARB NEGATIVE QUAL (NEGATIVE); UDS - BENZO NEGATIVE QUAL (NEGATIVE); UDS - COCAINE NEGATIVE QUAL (NEGATIVE); UDS - OPIATE POSITIVE QUAL (NEGATIVE); UDS - PCP NEGATIVE QUAL (NEGATIVE); UDS - THC NEGATIVE QUAL (NEGATIVE)
[2018-08-03 13:04] LABS: APPEARANCE HAZY (CLEAR); BILIRUBIN NEGATIVE (NEGATIVE); COLOR YELLOW (YELLOW); GLUCOSE NEGATIVE (NEGATIVE); KETONE NEGATIVE (NEGATIVE); NITRITE NEGATIVE (NEGATIVE); PROTEIN NEGATIVE (NEGATIVE); SPECIFIC GRAVITY 1.015 (1.005-1.020)
[2018-08-03 13:22] VITALS: BP 135/79
[2018-08-03 14:43] LABS: LYMPHOCYTES 8 % (15-50); MONOCYTES 10 % (2-11); NEUTROPHILS 80 % (40-80); PLATELET ESTIMATE NORMAL
== END 2018-08-03 13:23 | disposition home or self-care (01) ==
LOC: D.ER 11:12
PROVIDERS: Family Medicine
DX: R10.9 Unspecified abdominal pain (principal); D72.829 Elevated white blood cell count, unspecified

== ENCOUNTER 2018-08-08 03:54 | Emergency (ER) | payer MEDICAID ==
[~2018-08-08] VITALS: Ht 180.3 cm; Wt 137.7 kg
[2018-08-08 03:55] VITALS: Ht 180.3 cm; Wt 137.7 kg
[2018-08-08 05:01] LABS: BASOPHILS 0.2 % (0-2); EOSINOPHILS 2.5 % (0-7); HEMATOCRIT 41.7 % (42.0-54.0); IMMATURE GRANULOCYTES 0.5 % (0-5); LYMPHOCYTES 18.5 % (15-50); MCH 29.4 pg (26.0-34.0); MCHC 33.6 g/dL (31.0-37.0); MCV 87.4 fL (80.0-100.0); MEAN PLATELET VOLUME 10.1 fL (7.4-10.4); MONOCYTES 6.8 % (2-11); NEUTROPHILS 71.5 % (40-80); PLATELET COUNT 299 10x3/uL (130-400); RBC 4.77 10x6/uL (4.20-6.10); RDW 14.5 % (11.5-14.5); WBC 13.2 10x3/uL (4.8-10.8)
[2018-08-08 05:02] LABS: ALBUMIN 3.1 g/dL (3.4-5.0); ALKALINE PHOSPHATASE 106 U/L (46-116); ALT (SGPT) 35 U/L (10-68); CALC OSMOLALITY 281 mosm/kg (275-300); CALCIUM 8.7 mg/dL (8.5-10.1); CARBON DIOXIDE 21.9 mmol/L (21.0-32.0); CHLORIDE - SERUM 107 mmol/L (98-107); CREATININE - SERUM 0.9 mg/dL (0.6-1.3); GLUCOSE 106 mg/dL (74-106); POTASSIUM - SERUM 3.3 mmol/L (3.5-5.1); PROTEIN - SERUM 6.7 g/dL (6.4-8.2); SODIUM 142 mmol/L (136-145); UREA NITROGEN 10 mg/dL (7-18); eGFR NON AFRICAN AMERICAN > 90 mL/min (90-120)
[2018-08-08 06:00] VITALS: BP 125/81
== END 2018-08-08 06:00 | disposition home or self-care (01) ==
LOC: D.ER 03:54
PROVIDERS: Emergency Medicine
DX: R55 Syncope and collapse (principal); R05 Cough

== ENCOUNTER 2018-11-11 17:27 | Emergency (ER) | payer SELFPAY ==
[~2018-11-11] VITALS: Ht 180.3 cm; Wt 141.8 kg
[2018-11-11 17:30] VITALS: Ht 180.3 cm; Wt 141.8 kg
[2018-11-11 18:02] LABS: BASOPHILS 0.3 % (0-2); EOSINOPHILS 1.3 % (0-7); HEMATOCRIT 42.7 % (42.0-54.0); HEMOGLOBIN 14.8 g/dL (13.5-17.5); IMMATURE GRANULOCYTES 0.2 % (0-5); LYMPHOCYTES 20.7 % (15-50); MCH 29.9 pg (26.0-34.0); MCHC 34.7 g/dL (31.0-37.0); MCV 86.3 fL (80.0-100.0); MEAN PLATELET VOLUME 9.6 fL (7.4-10.4); MONOCYTES 5.9 % (2-11); NEUTROPHILS 71.6 % (40-80); RBC 4.95 10x6/uL (4.20-6.10); RDW 13.3 % (11.5-14.5); WBC 13.3 10x3/uL (4.8-10.8)
[2018-11-11 18:14] LABS: PLATELET COUNT 372 10x3/uL (130-400)
[2018-11-11 18:17] LABS: ALBUMIN 3.4 g/dL (3.4-5.0); ALKALINE PHOSPHATASE 115 U/L (46-116); ALT (SGPT) 21 U/L (10-68); BILIRUBIN - TOTAL 0.35 mg/dL (0.2-1.3); CALC OSMOLALITY 278 mosm/kg (275-300); CALCIUM 8.4 mg/dL (8.5-10.1); CARBON DIOXIDE 25.4 mmol/L (21.0-32.0); CHLORIDE - SERUM 104 mmol/L (98-107); GLUCOSE 93 mg/dL (74-106); POTASSIUM - SERUM 3.9 mmol/L (3.5-5.1); PROTEIN - SERUM 7.4 g/dL (6.4-8.2); SODIUM 139 mmol/L (136-145); UREA NITROGEN 15 mg/dL (7-18); eGFR NON AFRICAN AMERICAN > 90 mL/min (90-120)
[2018-11-11 18:21] LABS: AMYLASE - SERUM 28 U/L (25-115); LIPASE 75 U/L (73-393); TROPONIN-I < 0.017 ng/mL (0.000-0.060)
[2018-11-11 20:36] LABS: APPEARANCE CLEAR (CLEAR); BILIRUBIN NEGATIVE (NEGATIVE); COLOR STRAW (YELLOW); GLUCOSE NEGATIVE (NEGATIVE); KETONE NEGATIVE (NEGATIVE); NITRITE NEGATIVE (NEGATIVE); PROTEIN NEGATIVE (NEGATIVE); UROBILINOGEN NORMAL (NORMAL)
[2018-11-11 21:06] VITALS: BP 112/60
== END 2018-11-11 21:06 | disposition home or self-care (01) ==
LOC: D.ER 17:27
PROVIDERS: Emergency Medicine
DX: R10.11 Right upper quadrant pain (principal)

== ENCOUNTER 2018-11-13 20:19 | Emergency (ER) | payer SELFPAY ==
[~2018-11-13] VITALS: Ht 180.3 cm; Wt 137.3 kg
[2018-11-13 20:55] VITALS: Ht 180.3 cm; Wt 137.3 kg
[2018-11-13 21:13] LABS: BASOPHILS 0.2 % (0-2); EOSINOPHILS 0.9 % (0-7); HEMATOCRIT 43.5 % (42.0-54.0); HEMOGLOBIN 14.8 g/dL (13.5-17.5); IMMATURE GRANULOCYTES 0.4 % (0-5); LYMPHOCYTES 24.2 % (15-50); MCH 29.5 pg (26.0-34.0); MCV 86.7 fL (80.0-100.0); MEAN PLATELET VOLUME 9.5 fL (7.4-10.4); MONOCYTES 9.2 % (2-11); NEUTROPHILS 65.1 % (40-80); PLATELET COUNT 366 10x3/uL (130-400); RBC 5.02 10x6/uL (4.20-6.10); RDW 13.4 % (11.5-14.5); WBC 16.2 10x3/uL (4.8-10.8)
[2018-11-13 21:36] LABS: ALBUMIN 3.7 g/dL (3.4-5.0); ALKALINE PHOSPHATASE 107 U/L (46-116); ALT (SGPT) 22 U/L (10-68); AMYLASE - SERUM 31 U/L (25-115); BILIRUBIN - TOTAL 0.24 mg/dL (0.2-1.3); CALC OSMOLALITY 281 mosm/kg (275-300); CALCIUM 8.9 mg/dL (8.5-10.1); CARBON DIOXIDE 26.5 mmol/L (21.0-32.0); CHLORIDE - SERUM 105 mmol/L (98-107); CREATININE - SERUM 0.9 mg/dL (0.6-1.3); GLUCOSE 88 mg/dL (74-106); LIPASE 71 U/L (73-393); PROTEIN - SERUM 7.2 g/dL (6.4-8.2); SODIUM 141 mmol/L (136-145); UREA NITROGEN 18 mg/dL (7-18); eGFR NON AFRICAN AMERICAN > 90 mL/min (90-120)
[2018-11-13] MEDS ORDERED: HYDROCODON-ACE1 EAC7 PO (22:43)
[2018-11-13] MEDS ORDERED: ZOFRAN4 MG PO (22:43)
[2018-11-13] MEDS ORDERED: PROTONIX40 MG PO (22:43)
[2018-11-13 22:49] LABS: APPEARANCE CLEAR (CLEAR); BILIRUBIN NEGATIVE (NEGATIVE); COLOR YELLOW (YELLOW); GLUCOSE NEGATIVE (NEGATIVE); KETONE NEGATIVE (NEGATIVE); NITRITE NEGATIVE (NEGATIVE); PROTEIN NEGATIVE (NEGATIVE); UROBILINOGEN NORMAL (NORMAL)
[2018-11-13 22:58] LABS: UDS - AMPHET NEGATIVE QUAL (NEGATIVE); UDS - BARB NEGATIVE QUAL (NEGATIVE); UDS - BENZO NEGATIVE QUAL (NEGATIVE); UDS - COCAINE NEGATIVE QUAL (NEGATIVE); UDS - OPIATE POSITIVE QUAL (NEGATIVE); UDS - PCP NEGATIVE QUAL (NEGATIVE); UDS - THC NEGATIVE QUAL (NEGATIVE)
[2018-11-13 23:38] VITALS: BP 122/78
== END 2018-11-13 23:39 | disposition home or self-care (01) ==
LOC: D.ER 20:19
PROVIDERS: Emergency Medicine
DX: R10.9 Unspecified abdominal pain (principal); R11.2 Nausea with vomiting, unspecified; K21.9 Gastro-esophageal reflux disease without esophagitis

== ENCOUNTER 2019-02-11 07:36 | Emergency (ER) | payer SELFPAY ==
[~2019-02-11] VITALS: Ht 180.3 cm; Wt 135.5 kg
[~2019-02-11 07:36] MED LIST changes: +HYDROCODON-ACE1 EAC7 PO; +ZOFRAN4 MG PO
[2019-02-11 07:41] VITALS: Ht 180.3 cm; Wt 135.5 kg
[2019-02-11 08:15] LABS: CALC OSMOLALITY 285 mosm/kg (275-300); CALCIUM 8.8 mg/dL (8.5-10.1); CARBON DIOXIDE 28.2 mmol/L (21.0-32.0); CHLORIDE - SERUM 107 mmol/L (98-107); CREATININE - SERUM 1.1 mg/dL (0.6-1.3); GLUCOSE 99 mg/dL (74-106); POTASSIUM - SERUM 3.9 mmol/L (3.5-5.1); SODIUM 144 mmol/L (136-145); UREA NITROGEN 10 mg/dL (7-18); eGFR NON AFRICAN AMERICAN 86 mL/min (90-120)
[2019-02-11 08:28] LABS: ALBUMIN 3.1 g/dL (3.4-5.0); ALKALINE PHOSPHATASE 115 U/L (46-116); ALT (SGPT) 27 U/L (10-68); AMYLASE - SERUM 28 U/L (25-115); BILIRUBIN - TOTAL 0.17 mg/dL (0.2-1.3); LIPASE 83 U/L (73-393); PRO BNP 13 pg/mL (0-125); PROTEIN - SERUM 6.4 g/dL (6.4-8.2)
[2019-02-11 08:30] LABS: APPEARANCE CLEAR (CLEAR); COLOR YELLOW (YELLOW); GLUCOSE NEGATIVE (NEGATIVE); NITRITE NEGATIVE (NEGATIVE); PROTEIN NEGATIVE (NEGATIVE)
[2019-02-11 08:30] LABS: TROPONIN-I < 0.017 ng/mL (0.000-0.060)
[2019-02-11 08:31] LABS: BILIRUBIN NEGATIVE (NEGATIVE); KETONE NEGATIVE (NEGATIVE)
[2019-02-11 08:36] LABS: BASOPHILS 0.2 % (0-2); EOSINOPHILS 2.8 % (0-7); HEMATOCRIT 40.9 % (42.0-54.0); HEMOGLOBIN 13.2 g/dL (13.5-17.5); IMMATURE GRANULOCYTES 0.1 % (0-5); LYMPHOCYTES 21.7 % (15-50); MCH 28.9 pg (26.0-34.0); MCHC 32.3 g/dL (31.0-37.0); MCV 89.5 fL (80.0-100.0); MEAN PLATELET VOLUME 10.1 fL (7.4-10.4); MONOCYTES 9.3 % (2-11); NEUTROPHILS 65.9 % (40-80); RBC 4.57 10x6/uL (4.20-6.10); RDW 13.7 % (11.5-14.5); WBC 8.3 10x3/uL (4.8-10.8)
[2019-02-11 08:38] LABS: PLATELET COUNT 289 10x3/uL (130-400)
[2019-02-11] MEDS ORDERED: LEVSIN/ANASP0.125 MG PO (09:41)
[2019-02-11 09:55] VITALS: BP 131/75
[2019-02-12] MEDS ORDERED: PERCOCET 5-3251 TAB PO (06:16)
[2019-02-12] MEDS ORDERED: TYLENOL W/CODEI1 TAB PO (12:52)
== END 2019-02-11 09:58 | disposition home or self-care (01) ==
LOC: D.ER 07:36
PROVIDERS: Family Medicine
DX: R10.9 Unspecified abdominal pain (principal); D35.01 Benign neoplasm of right adrenal gland; R60.0 Localized edema

== ENCOUNTER 2019-02-12 04:26 | Emergency (ER) | payer SELFPAY ==
[~2019-02-12] VITALS: Ht 180.3 cm; Wt 89.8 kg
[~2019-02-12 04:26] MED LIST changes: +LEVSIN/ANASP0.125 MG PO
[2019-02-12 04:49] VITALS: Ht 180.3 cm; Wt 89.8 kg
[2019-02-12 05:30] LABS: BASOPHILS 0.3 % (0-2); EOSINOPHILS 3.5 % (0-7); HEMATOCRIT 40.6 % (42.0-54.0); IMMATURE GRANULOCYTES 0.1 % (0-5); LYMPHOCYTES 22.7 % (15-50); MCH 29.1 pg (26.0-34.0); NEUTROPHILS 63.4 % (40-80); PLATELET COUNT 294 10x3/uL (130-400); RBC 4.46 10x6/uL (4.20-6.10); RDW 13.6 % (11.5-14.5); WBC 7.9 10x3/uL (4.8-10.8)
[2019-02-12 05:40] LABS: CALC OSMOLALITY 285 mosm/kg (275-300); CALCIUM 8.5 mg/dL (8.5-10.1); CARBON DIOXIDE 29.8 mmol/L (21.0-32.0); CHLORIDE - SERUM 108 mmol/L (98-107); GLUCOSE 107 mg/dL (74-106); POTASSIUM - SERUM 3.8 mmol/L (3.5-5.1); SODIUM 144 mmol/L (136-145); UREA NITROGEN 10 mg/dL (7-18); eGFR NON AFRICAN AMERICAN > 90 mL/min (90-120)
[2019-02-12 05:46] LABS: ALKALINE PHOSPHATASE 119 U/L (46-116); ALT (SGPT) 25 U/L (10-68); AMYLASE - SERUM 30 U/L (25-115); BILIRUBIN - TOTAL 0.17 mg/dL (0.2-1.3); LIPASE 82 U/L (73-393); PROTEIN - SERUM 6.3 g/dL (6.4-8.2)
[2019-02-12] MEDS ORDERED: PERCOCET 5-3251 TAB PO (06:16)
[2019-02-12 06:26] VITALS: BP 130/79
[2019-02-12] MEDS ORDERED: TYLENOL W/CODEI1 TAB PO (12:52)
== END 2019-02-12 06:26 | disposition home or self-care (01) ==
LOC: D.ER 04:26
PROVIDERS: Emergency Medicine
DX: K80.50 Calculus of bile duct without cholangitis or cholecystitis without obstruction (principal)

== ENCOUNTER 2019-02-12 11:58 | Emergency (ER) | payer SELFPAY ==
[~2019-02-12] VITALS: Ht 180.3 cm; Wt 137.3 kg
[~2019-02-12 11:58] MED LIST changes: +PERCOCET 5-3251 TAB PO
[2019-02-12 12:12] VITALS: Ht 180.3 cm; Wt 137.3 kg
[2019-02-12] MEDS ORDERED: TYLENOL W/CODEI1 TAB PO (12:52)
[2019-02-12 13:27] VITALS: BP 130/85
== END 2019-02-12 13:28 | disposition home or self-care (01) ==
LOC: D.ER 11:58
DX: R10.9 Unspecified abdominal pain (principal); Z96.0 Presence of urogenital implants

== ENCOUNTER 2019-02-14 09:17 | Emergency (ER) | payer SELFPAY ==
[~2019-02-14] VITALS: Ht 180.3 cm; Wt 135.5 kg
[2019-02-14 09:23] VITALS: Ht 180.3 cm; Wt 135.5 kg
[2019-02-14 10:18] LABS: CALC OSMOLALITY 287 mosm/kg (275-300); CALCIUM 8.1 mg/dL (8.5-10.1); CARBON DIOXIDE 29.4 mmol/L (21.0-32.0); CHLORIDE - SERUM 108 mmol/L (98-107); GLUCOSE 91 mg/dL (74-106); POTASSIUM - SERUM 4.1 mmol/L (3.5-5.1); SODIUM 144 mmol/L (136-145); UREA NITROGEN 16 mg/dL (7-18); eGFR NON AFRICAN AMERICAN > 90 mL/min (90-120)
[2019-02-14 10:20] LABS: BASOPHILS 0.4 % (0-2); EOSINOPHILS 3.1 % (0-7); HEMATOCRIT 40.6 % (42.0-54.0); HEMOGLOBIN 13.3 g/dL (13.5-17.5); IMMATURE GRANULOCYTES 0.1 % (0-5); LYMPHOCYTES 28.9 % (15-50); MCH 29.6 pg (26.0-34.0); MCHC 32.8 g/dL (31.0-37.0); MCV 90.4 fL (80.0-100.0); MONOCYTES 8.6 % (2-11); NEUTROPHILS 58.9 % (40-80); PLATELET COUNT 274 10x3/uL (130-400); RBC 4.49 10x6/uL (4.20-6.10); RDW 13.8 % (11.5-14.5); WBC 8.1 10x3/uL (4.8-10.8)
[2019-02-14 10:27] LABS: ALBUMIN 2.8 g/dL (3.4-5.0); ALKALINE PHOSPHATASE 99 U/L (46-116); ALT (SGPT) 22 U/L (10-68); AMYLASE - SERUM 28 U/L (25-115); BILIRUBIN - TOTAL 0.16 mg/dL (0.2-1.3); LIPASE 74 U/L (73-393); PROTEIN - SERUM 5.9 g/dL (6.4-8.2); TROPONIN-I < 0.017 ng/mL (0.000-0.060)
[2019-02-14 10:47] LABS: APPEARANCE CLEAR (CLEAR); BILIRUBIN NEGATIVE (NEGATIVE); COLOR YELLOW (YELLOW); GLUCOSE NEGATIVE (NEGATIVE); KETONE NEGATIVE (NEGATIVE); NITRITE NEGATIVE (NEGATIVE); PROTEIN NEGATIVE (NEGATIVE); SPECIFIC GRAVITY 1.015 (1.005-1.020)
[2019-02-14 12:07] VITALS: BP 133/66
== END 2019-02-14 12:08 | disposition home or self-care (01) ==
LOC: D.ER 09:17
PROVIDERS: Family Medicine
DX: R10.9 Unspecified abdominal pain (principal); Z96.89 Presence of other specified functional implants

== ENCOUNTER 2019-04-15 00:58 | Emergency (ER) | payer SELFPAY ==
[~2019-04-15] VITALS: Ht 180.3 cm; Wt 127.3 kg
[2019-04-15 01:04] VITALS: Ht 180.3 cm; Wt 127.3 kg
[2019-04-15] MEDS ORDERED: HYDROCODON-ACE1 EA10 PO (01:26)
[2019-04-15 01:55] VITALS: BP 126/71
== END 2019-04-15 01:55 | disposition home or self-care (01) ==
LOC: D.ER 00:58
DX: S69.91XA Unspecified injury of right wrist, hand and finger(s), initial encounter (principal); W19.XXXA Unspecified fall, initial encounter; M25.531 Pain in right wrist

== ENCOUNTER 2019-05-13 21:17 | Emergency (ER) | payer SELFPAY ==
[~2019-05-13] VITALS: Ht 180.3 cm; Wt 128.2 kg
[~2019-05-13 21:17] MED LIST changes: +HYDROCODON-ACE1 EA10 PO
[2019-05-13 21:23] VITALS: Ht 180.3 cm; Wt 128.2 kg
[2019-05-13 21:39] LABS: BASOPHILS 0.2 % (0-2); HEMATOCRIT 45.9 % (42.0-54.0); HEMOGLOBIN 14.7 g/dL (13.5-17.5); IMMATURE GRANULOCYTES 0.2 % (0-5); LYMPHOCYTES 20.7 % (15-50); MCH 28.9 pg (26.0-34.0); MCV 90.2 fL (80.0-100.0); MEAN PLATELET VOLUME 9.6 fL (7.4-10.4); MONOCYTES 8.2 % (2-11); NEUTROPHILS 68.7 % (40-80); PLATELET COUNT 337 10x3/uL (130-400); RBC 5.09 10x6/uL (4.20-6.10); RDW 12.8 % (11.5-14.5); WBC 10.5 10x3/uL (4.8-10.8)
[2019-05-13 22:00] LABS: CALC OSMOLALITY 284 mosm/kg (275-300); CALCIUM 9.2 mg/dL (8.5-10.1); CARBON DIOXIDE 26.6 mmol/L (21.0-32.0); CHLORIDE - SERUM 106 mmol/L (98-107); CREATININE - SERUM 1.1 mg/dL (0.6-1.3); GLUCOSE 89 mg/dL (74-106); POTASSIUM - SERUM 4.1 mmol/L (3.5-5.1); SODIUM 143 mmol/L (136-145); UREA NITROGEN 14 mg/dL (7-18); eGFR NON AFRICAN AMERICAN 86 mL/min (90-120)
[2019-05-13 22:04] LABS: BILIRUBIN NEGATIVE (NEGATIVE); GLUCOSE NEGATIVE (NEGATIVE); KETONE NEGATIVE (NEGATIVE); NITRITE NEGATIVE (NEGATIVE); SPECIFIC GRAVITY 1.025 (1.005-1.020); UROBILINOGEN NORMAL (NORMAL)
[2019-05-13 22:05] LABS: ALBUMIN 3.7 g/dL (3.4-5.0); ALKALINE PHOSPHATASE 117 U/L (30-120); ALT (SGPT) 26 U/L (10-68); AMYLASE - SERUM 31 U/L (25-115); BILIRUBIN - TOTAL 0.27 mg/dL (0.2-1.3); LIPASE 65 U/L (73-393); PROTEIN - SERUM 7.4 g/dL (6.4-8.2)
[2019-05-13] MEDS ORDERED: PROTONIX40 MG PO (23:12)
[2019-05-13] MEDS ORDERED: ZOFRAN8 MG PO (23:12)
[2019-05-13 23:24] VITALS: BP 130/71
== END 2019-05-13 23:24 | disposition home or self-care (01) ==
LOC: D.ER 21:17
PROVIDERS: Family Medicine
DX: K29.70 Gastritis, unspecified, without bleeding (principal)

== ENCOUNTER 2019-07-16 01:10 | Emergency (ER) | payer SELFPAY ==
[~2019-07-16] VITALS: Ht 180.3 cm; Wt 127.3 kg
[2019-07-16 01:17] VITALS: Ht 180.3 cm; Wt 127.3 kg
[2019-07-16 01:29] LABS: BASOPHILS 0.1 % (0-2); EOSINOPHILS 0 % (0-7); HEMATOCRIT 43.9 % (42.0-54.0); HEMOGLOBIN 14.4 g/dL (13.5-17.5); IMMATURE GRANULOCYTES 0.3 % (0-5); LYMPHOCYTES 8.4 % (15-50); MCH 29.1 pg (26.0-34.0); MCHC 32.8 g/dL (31.0-37.0); MCV 88.9 fL (80.0-100.0); MEAN PLATELET VOLUME 9.7 fL (7.4-10.4); MONOCYTES 7.1 % (2-11); NEUTROPHILS 84.1 % (40-80); PLATELET COUNT 377 10x3/uL (130-400); RBC 4.94 10x6/uL (4.20-6.10); RDW 13.2 % (11.5-14.5); WBC 14.9 10x3/uL (4.8-10.8)
[2019-07-16 01:41] LABS: CALC OSMOLALITY 280 mosm/kg (275-300); CALCIUM 9.1 mg/dL (8.5-10.1); CARBON DIOXIDE 24.1 mmol/L (21.0-32.0); CHLORIDE - SERUM 105 mmol/L (98-107); CREATININE - SERUM 1.3 mg/dL (0.6-1.3); POTASSIUM - SERUM 3.9 mmol/L (3.5-5.1); SODIUM 140 mmol/L (136-145); UREA NITROGEN 13 mg/dL (7-18); eGFR NON AFRICAN AMERICAN 71 mL/min (90-120)
[2019-07-16 01:44] LABS: GLUCOSE 141 mg/dL (74-106)
[2019-07-16 01:50] LABS: ALBUMIN 3.7 g/dL (3.4-5.0); ALKALINE PHOSPHATASE 120 U/L (30-120); ALT (SGPT) 28 U/L (10-68); AMYLASE - SERUM 33 U/L (25-115); BILIRUBIN - TOTAL 0.27 mg/dL (0.2-1.3); LIPASE 61 U/L (73-393); PROTEIN - SERUM 7.7 g/dL (6.4-8.2)
[2019-07-16 01:55] LABS: TROPONIN-I < 0.017 ng/mL (0.000-0.060)
[2019-07-16 02:49] LABS: BILIRUBIN NEGATIVE (NEGATIVE); GLUCOSE 50 mg/dL (NEGATIVE); KETONE SMALL mg/dL (NEGATIVE); NITRITE NEGATIVE (NEGATIVE); SPECIFIC GRAVITY 1.025 (1.005-1.020); UROBILINOGEN NORMAL (NORMAL)
[2019-07-16] MEDS ORDERED: PEPCID40 MG PO (03:16)
[2019-07-16] MEDS ORDERED: PROTONIX40 MG PO (03:16)
[2019-07-16 03:27] VITALS: BP 139/84
[2019-07-17] MEDS ORDERED: HYDROCODON-ACE1 EAC7 PO (02:31)
== END 2019-07-16 03:27 | disposition home or self-care (01) ==
LOC: D.ER 01:10
PROVIDERS: Family Medicine
DX: R10.9 Unspecified abdominal pain (principal); K21.9 Gastro-esophageal reflux disease without esophagitis; R11.0 Nausea

== ENCOUNTER 2019-07-17 01:59 | Emergency (ER) | payer SELFPAY ==
[~2019-07-17] VITALS: Ht 180.3 cm; Wt 127.3 kg
[~2019-07-17 01:59] MED LIST changes: +PEPCID40 MG PO
[2019-07-17 02:03] VITALS: Ht 180.3 cm; Wt 127.3 kg
[2019-07-17] MEDS ORDERED: HYDROCODON-ACE1 EAC7 PO (02:31)
[2019-07-17 02:54] VITALS: BP 112/67
== END 2019-07-17 02:54 | disposition home or self-care (01) ==
LOC: D.ER 01:59
DX: S51.812A Laceration without foreign body of left forearm, initial encounter (principal); W25.XXXA Contact with sharp glass, initial encounter; Y93.9 Activity, unspecified; Y92.9 Unspecified place or not applicable

== ENCOUNTER 2019-07-22 00:23 | Emergency (ER) | payer SELFPAY ==
[~2019-07-22] VITALS: Ht 180.3 cm; Wt 128.2 kg
[2019-07-22 00:39] VITALS: Ht 180.3 cm; Wt 128.2 kg
[2019-07-22] MEDS ORDERED: PROTONIX20 MG PO (00:47)
[2019-07-22] MEDS ORDERED: ULTRAM50 MG PO (00:48)
[2019-07-22 01:08] VITALS: BP 107/56
== END 2019-07-22 01:08 | disposition home or self-care (01) ==
LOC: D.ER 00:23
DX: S51.812A Laceration without foreign body of left forearm, initial encounter (principal); Z98.890 Other specified postprocedural states

== ENCOUNTER 2019-11-21 15:24 | Emergency (ER) | payer SELFPAY ==
[~2019-11-21] VITALS: Ht 180.3 cm; Wt 141.8 kg
[~2019-11-21 15:24] MED LIST changes: +PROTONIX20 MG PO; +ULTRAM50 MG PO
[2019-11-21 15:31] VITALS: Ht 180.3 cm; Wt 141.8 kg
[2019-11-21 18:46] VITALS: BP 132/85
[2019-11-21] MEDS ORDERED: NORCO 7.5-3251 EACH PO (19:44)
== END 2019-11-21 20:47 | disposition home or self-care (01) ==
LOC: D.ER 15:24
DX: T22.211A Burn of second degree of right forearm, initial encounter (principal); X12.XXXA Contact with other hot fluids, initial encounter; Y93.9 Activity, unspecified; Y92.9 Unspecified place or not applicable

== ENCOUNTER 2019-11-24 16:11 | Emergency (ER) | payer MEDICAID ==
[~2019-11-24] VITALS: Ht 180.3 cm; Wt 141.8 kg
[~2019-11-24 16:11] MED LIST changes: +NORCO 7.5-3251 EACH PO
[2019-11-24 16:23] VITALS: Ht 180.3 cm; Wt 141.8 kg
[2019-11-24] MEDS ORDERED: KEFLEX500 MG PO (16:51)
[2019-11-24 18:32] VITALS: BP 133/96
== END 2019-11-24 18:34 | disposition home or self-care (01) ==
LOC: D.ER 16:11
DX: T22.211A Burn of second degree of right forearm, initial encounter (principal); L03.90 Cellulitis, unspecified; X08.8XXA Exposure to other specified smoke, fire and flames, initial encounter

== ENCOUNTER 2020-06-18 09:12 | Emergency (ER) | payer BC ==
[~2020-06-18] VITALS: Ht 180.3 cm; Wt 140.9 kg
[~2020-06-18 09:12] MED LIST changes: +KEFLEX500 MG PO
[2020-06-18 09:21] VITALS: BP 128/73; Ht 180.3 cm; Wt 140.9 kg
[2020-06-18] MEDS ORDERED: SILVADENE20 GM TP (09:59)
== END 2020-06-18 10:17 | disposition home or self-care (01) ==
LOC: D.ER 09:12
DX: T54.2X1A Toxic effect of corrosive acids and acid-like substances, accidental (unintentional), initial encounter (principal); T25.422A Corrosion of unspecified degree of left foot, initial encounter